=== PATIENT | female | born 1965 | race African-American/Black ===

== ENCOUNTER 2019-01-19 01:08 | Emergency (ER) | payer MEDICARE, OTHER ==
[~2019-01-19] VITALS: Ht 162.6 cm; Wt 69.0 kg
[2019-01-19] MEDS ORDERED: HYDROCODONE/ACETAMINOPHEN 5/325MG TABLET PO ONE (02:45)
[2019-01-19 04:05] VITALS: BP 130/86
== END 2019-01-19 04:31 | disposition home or self-care (01) ==
LOC: ER 01:08
DX: G89.29 Other chronic pain (principal); M25.571 Pain in right ankle and joints of right foot; I10 Essential (primary) hypertension; Z96.659 Presence of unspecified artificial knee joint; Z88.2 Allergy status to sulfonamides
CPT/HCPCS: 29515; 99283